=== PATIENT | female | born 1950 | race Caucasian/White ===

== ENCOUNTER → 2017-10-16 | Outpatient (REF) | payer OTHER ==
[2017-10-16 13:27] LABS: VITAMIN B12 LEVEL 1315 PG/ML (247-911)
== END ==
LOC: M LAB REF 12:03
DX: D51.9 Vitamin B12 deficiency anemia, unspecified (principal)

== ENCOUNTER → 2019-03-03 | Outpatient (REF) | payer MEDICARE, OTHER | LOC: M LAB REF 13:14 | PROVIDERS: ATTEND Internal Medicine | DX: Z01.89 Encounter for other specified special examinations (principal) ==

== ENCOUNTER → 2022-03-18 | Outpatient (REF) | payer MEDICARE, BC | LOC: M LAB REF 16:18 | PROVIDERS: ATTEND Internal Medicine | DX: D51.9 Vitamin B12 deficiency anemia, unspecified (principal) ==

== ENCOUNTER → 2022-10-24 | Outpatient (CLI) | payer MEDICARE, BC | LOC: M WHC 08:35 | PROVIDERS: ATTEND Internal Medicine | DX: Z12.31 Encounter for screening mammogram for malignant neoplasm of breast (principal); Z53.9 Procedure and treatment not carried out, unspecified reason ==

== ENCOUNTER → 2023-02-04 | Outpatient (CLI) | payer MEDICARE, BC | LOC: M WHC 07:50 | PROVIDERS: ATTEND Nurse Practitioner Family | DX: N64.4 Mastodynia (principal) | CPT/HCPCS: 76642; 77066; G0279 ==

== ENCOUNTER → 2023-02-16 | Outpatient (CLI) | payer MEDICARE, BC | LOC: M WHC 11:11 | PROVIDERS: ATTEND Surgery | DX: R92.8 Other abnormal and inconclusive findings on diagnostic imaging of breast (principal) ==

== ENCOUNTER → 2023-02-16 | Outpatient (REF) | payer MEDICARE, BC | LOC: M SFHCWAGY 13:29 | PROVIDERS: ATTEND Surgery | DX: D23.5 Other benign neoplasm of skin of trunk (principal) ==

== ENCOUNTER 2025-04-13 08:17 | Day surgery (SDC) | payer MEDICARE, BC ==
[~2025-04-13] VITALS: Ht 162.6 cm; Wt 91.6 kg
[~2025-04-13 08:17] MED LIST: BAYE81TA10 PO; CITRTAB18 PO; CYAN-11 PO; DOXE25CA PO; FLUO-365 PO; LOVA10TA PO; METF500T13 PO; PANT40TA29 PO; RIZA10TA58 PO; SEMA7TAB2 PO; VALS1TAB67 PO; VITA400C53 PO; VITAE40CA PO
[2025-04-13] MEDS ORDERED: LIDOCAINE 2% 100 MG/5 ML SDV (FOR ANES.) As Ordered ONE (09:37)
[2025-04-13 10:02] VITALS: TEMP 98.4
[2025-04-13 10:18] VITALS: BP 129/66; O2SAT 96
== END 2025-04-13 10:30 | disposition home or self-care (01) ==
LOC: M OPP 08:17
PROVIDERS: ATTEND Surgery
DX: Z12.11 Encounter for screening for malignant neoplasm of colon (principal); D12.6 Benign neoplasm of colon, unspecified; K57.30 Diverticulosis of large intestine without perforation or abscess without bleeding; K44.9 Diaphragmatic hernia without obstruction or gangrene; K31.7 Polyp of stomach and duodenum; K29.70 Gastritis, unspecified, without bleeding; Z79.82 Long term (current) use of aspirin; Z79.899 Other long term (current) drug therapy